=== PATIENT | male | born 1935 | race Caucasian/White ===

== ENCOUNTER 2018-09-01 19:09 | Inpatient (IN) ==
[2018-09-01 20:24] LABS: AGAP 15; ALB/GLOB RATIO 1.1; ALBUMIN 4.1 g/dL (3.5-5.0); ALKALINE PHOSPHATASE 107 U/L (32-122); BUN 14 mg/dL (8-22); CALCIUM 10.1 mg/dL (8.8-10.2); CHLORIDE 90 mmol/L (98-107); COSMO 262; CREATININE 1.1 mg/dL (0.7-1.2); ESTIMATED GFR > 60; GLUCOSE 145 mg/dL (70-104); GOT 15 U/L (10-34); GPT 6 U/L (10-44); POTASSIUM 4.3 mmol/L (3.5-5.1); SODIUM 129 mmol/L (136-145); TCO2 24 mmol/L (25-35); TOTAL BILIRUBIN 0.63 mg/dL (0.20-1.00)
[2018-09-01] MEDS ORDERED: DILAUDID IV ONE (20:32)
[2018-09-01] MEDS ORDERED: ATIVAN IV ONE (20:33)
[2018-09-01 20:41] LABS: BASO# 0.02 X1000 (0.0-0.2); BASO% 0.1 % (0.0-0.8); EOS# 0.09 X1000 (0.0-0.7); EOS% 0.7 % (0.0-10.0); HEMATOCRIT 42.5 % (42.0-52.0); HEMOGLOBIN 13.8 g/dL (14.0-18.0); IMM GRAN# 0.02 X1000 (0.0-0.04); IMM GRAN% 0.1 % (0.0-0.5); LYMPH# 0.78 X1000 (1.2-3.4); LYMPH% 5.8 % (20.5-51.1); MCH 27.2 PG (27-31); MCHC 32.5 g/dL (33-37); MCV 83.7 FL (81-99); MONO# 1.03 X1000 (0.11-0.59); MONO% 7.6 % (1.7-9.3); MPV 10.1 FL (7.4-10.4); NEUT# 11.62 X1000 (1.4-6.5); NEUT% 85.7 % (42.2-75.2); PLT 323 X1000 (130-400); RBC 5.08 XMIL (4.7-6.1); RDW 14.5 % (11.5-14.5); WBC 13.56 X1000 (4.8-10.8)
--- NOTE | 2018-09-01 21:16 | Diag Imaging Result Doc PS360 ---
EXAM: FLAT/UPRIGHT ABD/1 VIEW CHEST 09/01/2018 HISTORY: BOWEL OBSTRUCTION TECHNIQUE: AP portable upright chest and flat and upright abdomen at 2054 COMMENT: There is a fairly large amount of stool present in the colon as well as dilatation of the hepatic flexure and ascending colon with gas. The appearance is similar to 03/10/2017. There is an NG tube which is doubled up in the lower esophagus. There is subsegmental atelectasis in both lung bases as well as in the right upper lobe. The latter was not present at the time the previous study. IMPRESSION: 1. Constipation with apparent colonic ileus. 2. NG tube in the esophagus. 3. Subsegmental atelectasis plus minus pneumonia right upper lobe. Electronically signed by Minor Pena 09/01/2018 9:13 PM
--- NOTE | 2018-09-01 21:35 | Diag Imaging Result Doc PS360 ---
EXAM: CHEST/ABD TUBE PLACEMENT 09/01/2018 HISTORY: tube placed TECHNIQUE: Semierect portable at 2123 COMMENT: The distal end of the NG tube is not clearly visible however there does still appear to be a hairpin loop in the distal esophagus. IMPRESSION: NG tube in the esophagus. Electronically signed by Minor Pena 09/01/2018 9:32 PM
--- NOTE | 2018-09-01 22:00 | Diag Imaging Result Doc PS360 ---
EXAM: CT ABD/PELVIS W/IV CONT ONLY 09/01/2018 HISTORY: abdominal pain, distention, possible obstruction TECHNIQUE: This exam was performed using automated exposure control, adjustment of mA or kV according to patient size, and/or use of iterative reconstruction technique. COMMENT: The current study is compared to 07/31/2016. There are some fibrotic opacities in the lung bases bilaterally. There is compressive atelectasis or pneumonia in the right lower lobe which was not present at the time the previous study. There is a pleural effusion on the right. The stomach is distended. There is an NG tube which is coiled in the lower esophagus. There has been cholecystectomy. There is atherosclerotic calcification in the distal esophagus and iliac arteries. There is calcific and noncalcific atherosclerotic plaque at the ostium of the celiac artery which appears to be stenotic. There is also heavy calcification of the ostium of the superior mesenteric and both renal arteries. The adrenal glands and pancreas are within normal limits. There is fluid throughout most of the small bowel. There is stool in the colon the colon is not distended and the distal small bowel is not distended. The transition is located at the level of image 50 of the arterial phase on the right side just anterior to the lower portion of the liver. There is some twisting involvement which may indicate volvulus. The portion of the small bowel distal to this point is not distended. Pelvis: There are diverticula in the sigmoid colon without evidence of active diverticulitis. The urinary bladder is not distended. There is internal fixation of the right femur. There are degenerative disc changes with spinal stenosis at the L4-5 level. There is apparent herniated nucleus pulposis in the midline at L5-S1. IMPRESSION: 1. Right pleural effusion and atelectasis versus pneumonia right lower lobe. 2. Small bowel obstruction. 3. NG tube in the esophagus. Electronically signed by Minor Pena 09/01/2018 9:58 PM
[2018-09-01 22:53] LABS: INR 2.09
[2018-09-01 22:54] LABS: PTT 46.9 Seconds (22.3-41.8)
[2018-09-01 22:57] LABS: MAGNESIUM 1.9 mg/dL (1.5-2.7)
[2018-09-02] MEDS: ZOSYN 3.375 GM in NS 50 ML IV SCH ×2 (00:32→05:24)
[2018-09-02] MEDS: LOVENOX SUBQ SCH ×3 (00:33→23:20)
[2018-09-02] MEDS ORDERED: OFIRMEV 1000 MG/ISOTONIC SOLN 1,000 MG/100 ML BOTTLE IV PRN (01:22)
[2018-09-02] MEDS ORDERED: PROTONIX IV SCH (01:30)
[2018-09-02] MEDS ORDERED: DUONEB (A & A) INH PRN (01:56)
[2018-09-02] MEDS: NS 1,000 ML IV SCH ×2 (02:25→13:21)
--- NOTE | 2018-09-02 02:38 | GENERAL SURGERY CONSULTATION ---
DATE: 09/01/2018 HISTORY OF PRESENT ILLNESS: This is an 83-year-old gentleman who has had progressive abdominal distention and nausea for the last 24-36 hours. He was having colicky pain and vomiting at home. His brought him in. He had a recent bowel obstruction that was treated nonoperatively and resolved. He has had an open cholecystectomy, coronary artery bypass grafting, and a mitral valve replacement. He has had a colonoscopies, he has apparently been normal, I am unsure of the timing. Most of the history is per his here. A CT scan showed a bowel obstruction with colonic decompression. No free air or free fluid. PAST MEDICAL HISTORY: Dementia, history of mitral valve replacement, hypertension, coronary disease. PAST SURGICAL HISTORY: He has had open cholecystectomy and coronary artery bypass grafting with mitral valve replacement. SOCIAL HISTORY: No current tobacco or alcohol. He is with his here. FAMILY HISTORY: Reviewed. REVIEW OF SYSTEMS: Ten point negative. PHYSICAL EXAMINATION: Vital Signs: He is afebrile. There is no tachycardia. Blood pressures have been 119/64, oxygen saturations has been 90s. He is on nasal cannula. General: He is an elderly appearing somewhat cachectic gentleman. HEENT: No scleral icterus. Neck: No cervical mass. Cardiovascular: Normal rate. He has median sternotomy incision. Pulmonary: No increased work of breathing. Abdomen: Distended and tympanic. There is a reverse right subcostal incision. He is soft with no peritonitis. Integument: Warm and dry. Psychiatric: Appropriate affect. Neurologic: No gross deficits. Lymphatic: No cervical adenopathy. Peripheral Vascular: No lower extremity edema. LABORATORY DATA: White count is 13, hematocrit is 42, platelets 323,000. Creatinine is 1.1. Sodium is low at 129, glucose 145. Bilirubin is normal. Albumin is 4.1. I have reviewed a CT scan, but formal report is pending. ASSESSMENT AND PLAN: The patient is an 83-year-old gentleman with a bowel obstruction which is recurrent related to a previous open cholecystectomy. Initially there was difficulty placing a nasogastric tube, but I was able to get an 18-Urdu down with a large amount of bilious gastric contents greater than a liter. We will continue nasogastric tube decompression and serial abdominal examinations. Hopefully we can avoid an operation on this elderly gentleman. He has resolved these in the past, and we will continue following closely. He is being admitted to the hospitalist. I would recommend correction of electrolytes, hydration, NPO. cc: Genesis Pavon MD
[2018-09-02 04:48] LABS: BASO# 0.02 X1000 (0.0-0.2); BASO% 0.2 % (0.0-0.8); EOS# 0.03 X1000 (0.0-0.7); EOS% 0.2 % (0.0-10.0); HEMATOCRIT 41.9 % (42.0-52.0); HEMOGLOBIN 13.5 g/dL (14.0-18.0); IMM GRAN# 0.02 X1000 (0.0-0.04); IMM GRAN% 0.2 % (0.0-0.5); LYMPH# 0.53 X1000 (1.2-3.4); LYMPH% 4.4 % (20.5-51.1); MCH 27.1 PG (27-31); MCHC 32.2 g/dL (33-37); MCV 84.1 FL (81-99); MONO# 0.49 X1000 (0.11-0.59); MONO% 4.1 % (1.7-9.3); MPV 10.9 FL (7.4-10.4); NEUT# 10.97 X1000 (1.4-6.5); NEUT% 90.9 % (42.2-75.2); PLT 325 X1000 (130-400); RBC 4.98 XMIL (4.7-6.1); RDW 14.5 % (11.5-14.5); WBC 12.06 X1000 (4.8-10.8)
[2018-09-02 04:59] LABS: ESTIMATED GFR > 60
[2018-09-02 05:02] LABS: AGAP 12; BUN 16 mg/dL (8-22); CALCIUM 9.5 mg/dL (8.8-10.2); CHLORIDE 88 mmol/L (98-107); COSMO 257; CREATININE 1.1 mg/dL (0.7-1.2); GLUCOSE 114 mg/dL (70-104); POTASSIUM 4.5 mmol/L (3.5-5.1); SODIUM 127 mmol/L (136-145); TCO2 27 mmol/L (25-35)
[2018-09-02 05:08] LABS: LYMPHS 12 % (21-51); MONO 8 % (1-9); SEGS 80 % (42-75)
--- NOTE | 2018-09-02 05:27 | HISTORY AND PHYSICAL ---
ADDENDUM: Brought in today complaining of three-day history of constipation, one-day history of abdominal distention and diffuse abdominal pain. He admits to having nausea but no vomiting. He denies any fever or chills. The patient was given IV Atropine on his way to the hospital because he became profoundly nauseous and became profoundly bradycardic. He had NG tube placed and he feels a little better but 500 mL of greenish-yellowish content is in the canister at this point in time. His white count is 13,000, hematocrit and hemoglobin 13 and 42, platelets 323, 85% neutrophils, sodium is 129, BUN is 14, creatinine 1.1. A CT scan was done and it showed right pleural effusion, atelectasis versus pneumonia in the right lower lobe. Small bowel obstruction was also noted. REVIEW OF SYSTEMS: The patient also denies any coughing or shortness of breath. PHYSICAL EXAMINATION: VITAL SIGNS: Blood pressure 119/64, heart rate 52, respirations 31, temperature is 97.7. GENERAL: A frail, elderly, man who is not in acute distress. NG tube in left nares. EYES: Eyes: PERRL. EOMI. SKIN: He is mildly pale. He has diffuse skin turgor. CHEST: Decreased chest air entry in both lung dan. CARDIOVASCULAR: The patient has a 3/6 ejection murmur with associated click. ABDOMEN: Slightly distended with mild epigastric tenderness. No rebound or guarding. Bowel sounds are hypoactive. No mass or megaly appreciated. EXTREMITIES: Decreased pulse volume distally in all extremities. ASSESSMENT: 1. Small bowel obstruction. Continue NG tube decompression and symptomatic control with antiemetics and pain medication. 2. Possible right lower lobe pneumonia. Could represent unintentional aspiration pneumonia. 3. Hypertension. 4. Mitral valve mechanical valve. 5. Hyperlipidemia. 6. Probable coronary artery disease. PLAN: Additional plan would include empiric coverage with Zosyn for possible aspiration pneumonia and for possible intraabdominal infection. Will start patient on Lovenox in place of Coumadin for mechanical valve prophylaxis and IV metoprolol if needed and p.r.n. hydralazine if systolic blood pressure greater than 160. IV metoprolol 2.5 mg if systolic blood pressure greater than 130. Dr. Pavon was consulted, seen patient and he is on board and will follow with us. cc: Denice Anderson MD MTDD
[2018-09-02] MEDS: MAXIPIME 1 GM in NS 50 ML IV SCH ×2 (09:19→21:12)
[2018-09-02] MEDS: ZYVOX 600 MG/D5W 600 MG/300 ML IVPB IV SCH ×2 (09:19→21:12)
--- NOTE | 2018-09-02 09:56 | Diag Imaging Result Doc PS360 ---
EXAM: CHEST/ABD TUBE PLACEMENT INDICATION: NG tube placement TECHNIQUE: One view COMPARISON: 09/01/2018 FINDINGS: The NG tube has been repositioned and now the tip projects well below the diaphragm and is assumed to be in the lumen of the stomach in expected position. Limited views of the lung bases are essentially stable. IMPRESSION: Repositioning of the NG tube, which is now in the expected position. Electronically signed by Wili Gauthier 09/02/2018 9:54 AM
--- NOTE | 2018-09-02 10:23 | HISTORY AND PHYSICAL ---
PRIMARY CARE PROVIDER: Dr. Quentin Smith BOOTH CASHIER: Dr. Garcia at [facility]. DATE AND TIME OF HISTORY AND PHYSICAL: 09/01/2018 at 2300 hours. CHIEF COMPLAINT: Abdominal pain with nausea and vomiting. HISTORY OF PRESENT ILLNESS: Mr. Abbasi is an 83-year-old male with a past medical history most notable for hypertension, hyperlipidemia, and history of a mechanical mitral valve replacement on chronic anticoagulation with Coumadin. The patient has had a history of a small bowel obstruction in the past with the most recently being in July of 2016. The patient and his state that he began having abdominal pain in the mid afternoon on 09/01/2018. The patient reported that this was a tight type pain that was just superior to his umbilicus. He reports nausea that started later on that afternoon and he did have 1 episode of vomiting at home and reportedly had 1 or 2 episodes of vomiting since arriving to the E.R. His states that yesterday he was just not as active as he normally is. They denied him having any fever, body aches, or chills. The patient denies any headache, dizziness, shortness of breath, or cough. He denied knowingly getting choked or having a coughing spell during one of his vomiting episodes. The patient reports that his last bowel movement was yesterday but this was not as good of a bowel movement as he normally has. He denied having any problems with constipation prior to this. He denies any hematemesis, hematochezia, or melena. He denies any dysuria or urinary frequency. He also denies any pain, numbness, tingling, or swelling in the extremities. The patient's reports that just prior to the ambulance arriving that he was experiencing a lot of abdominal pain and that this did continue in the ambulance on the way to the hospital. EMS stated that en route the patient was having episodes of bradycardia with his heart rate dipping as low as into the 40s. They reported that he did become symptomatic with this and was having diaphoresis. Secondary to this they did give the patient 0.5 mg of atropine IV and his heart rate has improved and is maintaining in the high 50s and 60s at this time. EKG performed in the E.R. did show a sinus rhythm with a first degree AV block though this was present on previous EKGs as far back as 2015 and did not appear to have any acute significant changes from his prior EKG as well. He is not complaining of any chest pain, dizziness, lightheadedness, or shortness of breath at this time. This may have been a vagal response due to the patient's abdominal pain that he was having at the time. The patient does appear to have quite a bit of abdominal distention and it was reported to me by the patient's nurse that this was much worse prior to his NG tube being placed. A CT of the abdomen and pelvis did show that the patient has a small bowel obstruction. It also noted that there was a right pleural effusion and atelectasis versus pneumonia in the right lower lobe. Also, on the patient's flat and upright with 1 view chest they did note subsegmental atelectasis plus or minus pneumonia in the right upper lobe. They did have difficulty getting the patient's NG tube placed. First tube placement x-ray as well as the patient's CT did show the NG tube in the esophagus though the surgeon, Dr. Pavon, did come in and place the NG tube and since this has been placed they have been getting positive return of greenish colored emesis and the patient's abdominal distention and his pain have improved. We are awaiting chest/abdomen x-ray for tube placement confirmation at this time. He did have some mild leukocytosis with a white blood cell count of 13,560. He did have some very slight crackles in bilateral bases as well as an expiratory wheeze noted in bilateral upper lung dan. At this time the patient will be admitted for further evaluation of his small bowel obstruction and possible pneumonia. REVIEW OF SYSTEMS: A 14 point review of systems was conducted with the patient and all were negative except for pertinent positives mentioned above in the HPI. PAST MEDICAL HISTORY: 1. Hypertension. 2. Hyperlipidemia. 3. History of seizures back in the 1960s for which the patient states that he had a total of 3 seizures and has not had any since that time though the etiology of these seizures is unclear. 4. History of a mechanical mitral valve replacement on chronic anticoagulation with Coumadin. SURGICAL HISTORY: 1. Rip hip repair. 2. Mechanical mitral valve replacement which was performed 18.5 years ago. 3. Bilateral knee surgery. 4. Neck surgery. 5. Cholecystectomy. 6. Bilateral carpal tunnel repair. SOCIAL HISTORY: The patient does live with his . She states that he can ambulate without assistance but does occasionally use the assistance of a cane and walker. He is a former smoker. He quit smoking in the 1970s. There is no known illicit drug use though she does state that he drinks 1 to 2 beers daily. Though according to his , the patient has gone periods of time without drinking and has not ever had reported withdrawal symptoms. FAMILY HISTORY: His mother had a history of osteoarthritis. His father had a history of lung cancer. He does have a paternal grandfather that had a history of coronary artery disease. ALLERGIES: The patient has allergies to morphine. HOME MEDICATIONS: 1. Norvasc 10 mg p.o. daily. 2. Benazepril 20 mg p.o. every morning. 3. Gabapentin 300 mg p.o. b.i.d. 4. Isosorbide mononitrate 10 mg p.o. daily. 5. Asacol HD 800 mg p.o. b.i.d. 6. Metoprolol extended release 25 mg p.o. daily. 7. Ditropan 5 mg p.o. b.i.d. 8. Sertraline 100 mg p.o. every morning. 9. Simvastatin 20 mg p.o. nightly at bedtime. 10.Coumadin 2.5 mg p.o. nightly at bedtime. 11.Ambien 10 mg p.o. nightly at bedtime p.r.n. for sleep. DIAGNOSTIC DATA: White blood cell count is 13,560, hemoglobin 13.8, hematocrit 42.5, and platelet count 323. PT is 25, INR 2.09, and PTT 46.9. Sodium is 129, potassium 4.3, chloride 90, serum bicarb 24, BUN 14, creatinine 1.1 with a GFR of greater than 60, glucose 145, calcium 10.1, and magnesium 1.9. Liver function tests are within normal limits. CK is 62. Troponin is less than 0.01. EKG showed normal sinus rhythm with a first degree AV block at a rate of 60 with a QTc of 478. Flat and upright abdomen with 1 view chest showed constipation with apparent colonic ileus. There was subsegmental atelectasis plus or minus pneumonia in the right upper lobe. It was also noted that the NG tube on this film was in the esophagus. CT of the abdomen and pelvis with IV contrast only showed that the patient had a right pleural effusion and atelectasis versus pneumonia in the right lower lobe. There was also a small bowel obstruction. The NG tube was still noted to be in the esophagus on this study as well but since that time Dr. Pavon has placed the patient's NG tube and he is having positive return of greenish colored emesis and his abdominal distention and pain have improved but we are awaiting chest/abdomen x-ray for NG tube placement confirmation. PHYSICAL EXAMINATION: VITAL SIGNS: Temperature is 97.7, heart rate 56, respirations 13, and blood pressure 131/71. Oxygen saturation is 95% on 3 to 4 L via nasal cannula. GENERAL: Mr. Abbasi is a pleasant 83-year-old male. He was resting in the E.R. stretcher. He was in no acute distress. He was awake, alert, and oriented to person, place, time, and situation. HEENT: The head is atraumatic, normocephalic. Pupils are equal, round, and reactive to light. They were 2 mm bilaterally and brisk. Oral mucosa is slightly dry. Oropharynx is clear. NECK: Supple. Trachea is midline. CARDIOVASCULAR: The patient does have S1 and S2 though he does have a fairly loud systolic murmur noted. He does have a regular rate and rhythm. PULMONARY: The patient has symmetrical chest expansion bilaterally. Lungs sounds in bilateral upper dan did have an expiratory wheeze noted. He did have slight crackles noted in the bilateral bases. ABDOMEN: Slightly firm. It is distended. He was mildly tender upon palpation just superior to his umbilicus though there is no rebound tenderness noted at this time. Bowel sounds were present in all four quadrants and they were hypoactive. EXTREMITIES: No cyanosis, clubbing, or edema noted. Pulse, motor, and sensory were intact in all extremities. Radial pulses and pedal pulses were 2+ bilaterally. INTEGUMENTARY: The patient's skin is pink, warm, and dry. NEUROLOGICAL: The patient is alert and oriented to person, place, time, and situation. There were no focal neurological deficits noted at this time. ASSESSMENT AND PLAN: 1. Small bowel obstruction. For this we have placed the patient n.p.o. He has had an NG tube placed by Dr. Pavon in the E.R. Since this has been placed the patient has had a positive return of greenish colored gastric contents. His abdominal distention has improved and the patient also reports that his pain is much better. Dr. Pavon as previously mentioned has been consulted and has already evaluated the patient. We will await their evaluation and further recommendations for management. The patient will be placed on gentle fluid hydration with normal saline at 85 mL/hr. We will continue to follow. 2. Nausea and vomiting. This is secondary to #1. We will continue with treatment as mentioned above and p.r.n. antiemetics. 3. Possible pneumonia. The patient was noted on chest/abdomen x-ray as well as CT of the abdomen and pelvis that he has possible atelectasis versus pneumonia in the right upper and lower lobe. Given the patient's reported nausea and vomiting this may likely be secondary to aspiration pneumonia. We have placed him with antibiotic coverage of Zosyn. Blood cultures have been obtained. A sputum culture order has also been placed. We will continue with incentive spirometry, aspiration precautions, encouragement to cough, turn, and deep breath, and p.r.n. DuoNeb treatments. We will continue to follow. 4. Bradycardia. It was reported that in the ambulance on the way to the E.R. the patient did have an episode of what was reported to be symptomatic bradycardia. The patient' s heart rate did drop into the 40s and he did have an associated symptom of diaphoresis with this. The patient was reported to be in quite a bit of abdominal pain. He may have had a vagal response. They did end up giving him 0.5 mg of atropine IV and since that time the patient' s heart rate has maintained in the high 50s and 60s. He has not had any further episodes of symptomatic bradycardia with his heart rate getting into the 40s like his episode he had prior to arrival. His EKG in the E.R. did show a sinus rhythm with a first degree AV block at a rate of 60. His first degree AV block has been present on previous EKGs as far back as 2016. There does not appear to be any other EKG changes when compared to previous EKGs. He has denied any chest pain. Cardiac enzymes were negative. At this time we will continue to monitor this. The patient has been placed in [facility] with telemetry at least overnight to be monitored closely for any other episodes of bradycardia. We will continue to follow. 5. History of mechanical mitral valve replacement. The patient normally does take Coumadin for anticoagulation but given that he has a small bowel obstruction, he is n.p.o. , and does have an NG tube in place. At this time we have placed him with anticoagulation with Lovenox 1 mg/kg every 12 hours. We will continue to follow. 6. Hypertension. At this time the patient's blood pressure is within normal limits. We will continue to monitor this closely and implement antihypertensives if necessary though at this time we are holding his metoprolol as well given his bradycardia. We will continue to follow. 7. Deep vein thrombosis prophylaxis is provided with the above mentioned Lovenox. The patient has been placed in [facility] on telemetry. He will have vital signs every 4 hours with strict intake and output. We will repeat a CBC and BMP in the morning. Further orders and recommendations pending hospital course, diagnostic studies, and physician evaluation. Dictated by MO Cardona for Denice Anderson MD cc: Denice Anderson MD Pls refer to my addendum dictated. MTDD
[2018-09-02] MEDS: DUONEB (A & A) INH SCH ×4 (11:01→23:25)
--- NOTE | 2018-09-02 14:04 | GENERAL SURGERY PROGRESS NOTE ---
DATE: 09/02/2018 SUBJECTIVE: He feels better. NG tube output remains high. No fevers. No tachycardia. OBJECTIVE: Blood pressure 104/82. General: He is more alert. Cardiovascular: Normal rate. Pulmonary: No increased work of breathing. NG tube is in place with a large amount of bilious output. Abdomen: Soft, nontender. Less distended. LABS: White count 12, hematocrit 41, potassium 4.5, sodium is 127, glucose 114 to 163. ASSESSMENT AND PLANS: An 83-year-old, gentleman with bowel obstruction. He has medical issues. Will continue nasogastric tube decompression. He has had these before and is resolving nonoperatively. He would be high risk for abdominal operation given his multiple medical issues including cardiac and dementia. His sodium continues to downtrend. Will need to watch this closely. He is on the medicine service. Will follow along, but no plans for surgical intervention. cc: Genesis Pavon MD
[2018-09-02] MEDS ORDERED: SODIUM CHLORIDE 0.9% INJ SCH (15:15)
--- NOTE | 2018-09-02 19:18 | PROVIDER DOCUMENTATION ---
This chart was entered by Stephanie Menendez Scribe, acting as scribe for Laurie Laughlin MD. HPI-Abdominal Pain/GI Problem - General Chief Complaint: Abdominal Pain Stated Complaint: ABD PAIN WITH N/V Time Seen by Provider: 09/01/18 19:54 Source: patient Allergies/Adverse Reactions: Patient Allergies Allergy/AdvReac Type Severity Reaction Status Date / Time morphine AdvReac Intermediate causes Verified 09/01/18 21:37 ileus Home Medications: Home Medication List Medication Instructions Recorded Confirmed Last Taken Type Sertraline HCl 100 mg PO QAM 12/09/15 09/01/18 01/29/17 08:00 History Simvastatin 20 mg PO QHS 12/09/15 09/01/18 01/28/17 History Zolpidem [Ambien] 10 mg PO QHS PRN #20 tablet 12/29/15 09/01/18 01/28/17 Rx Amlodipine [Norvasc] 10 mg PO DAILY 03/11/16 09/01/18 01/29/17 08:00 History Mesalamine D.r. [Asacol Hd] 800 mg PO BID 01/29/17 09/01/18 01/29/17 08:00 History Warfarin [Coumadin] 2.5 mg PO QHS 01/29/17 09/02/18 01/28/17 History Benazepril HCl 20 mg PO QAM 09/01/18 09/01/18 Unknown History Gabapentin 300 mg PO BID 09/01/18 09/01/18 Unknown History Isosorbide Mononitrate 10 mg PO DAILY 09/01/18 09/01/18 Unknown History Oxybutynin [Ditropan] 5 mg PO BID 09/01/18 09/01/18 Unknown History - History of Present Illness-ABD Nature of Presenting Problems: Patient is a 83 year old male who presents to the ED via EMS with generalized upper abdominal pain. Patient states nausea and denies vomiting. Patient states symptoms started this afternoon. Patient's states history of small bowel obstruction. Abdominal Pain Onset Location: reports: other (generalized upper) Pain Radiation: reports: no radiation Quality of Pain: reports: aching Severity in ED: reports: mild Onset/Duration: reports: this afternoon Timing: reports: still present, getting worse Activities at Onset: reports: light activity Modifying Factors: improves with: nothing Associated Symptoms: reports: nausea Last BM: 2 days ago Dark Stools Present?: reports: none noticed Rectal Bleeding: reports: none Rectal Pain: reports: none Emesis Description: reports: none Bruising or Bleeding Gums?: No Similar Symptoms Previously?: Yes Recently seen or treated by another doctor?: No Review of Systems - Adult - REVIEW OF SYSTEMS - ADULT Constitutional: reports: no symptoms reported Eyes: reports: no symptoms reported Ears, Nose, Mouth & Throat: reports: no symptoms reported Cardiovascular: reports: no symptoms reported Respiratory: reports: no symptoms reported Gastrointestinal: reports: abdominal pain (generalized upper), nausea. denies: diarrhea, vomiting Genitourinary: reports: no symptoms reported Musculoskeletal: reports: no symptoms reported Integumentary: reports: no symptoms reported Neurological: reports: no symptoms reported Psychiatric: reports: no symptoms reported Endocrine: reports: no symptoms reported Hematologic/Lymphatic: reports: no symptoms reported Allergic/Immunologic: reports: no symptoms reported All Other Systems: Reviewed and Negative Past History - Adult - PAST MEDICAL HISTORY-ADULT Review of Records: reports: Nursing Assessment Review, Medications Reviewed, Social history reviewed & non-contributory. Major Childhood Illnesses: reports: denies history Cardiovascular: reports: HTN Respiratory: reports: denies history Gastrointestinal: reports: denies history Obstetrical/Gynecological: reports: denies history Genitourinary: reports: denies history Musculoskeletal: reports: denies history Neurological: reports: Seizures/Epilepsy () Psychiatric: reports: denies history Endocrine/Immune: reports: denies history Other Conditions: reports: denies history - PRIOR SURGERIES/PROCEDURES Surgical/Procedure History: reports: reviewed, not pertinent, other (mechanical mitral valve) - PRIOR HOSPITALIZATIONS Prior Hospitalizations: reports: for similar symptoms - IMMUNIZATION STATUS Childhood Immunizations: See Nurse Assessment Flu Vaccine: See Nurse Assessment - FAMILY HISTORY Family History: reviewed, not pertinent - SOCIAL HISTORY Smoking: cigarettes (former) Substance Use: alcohol Alcohol Use Frequency: every day Number of drinks per typical drinking period:: 2 drinks Living Situation: family Physical Exam-General - PHYSICAL EXAM-ADULT Initial Vital Signs Reviewed: Yes - CONSTITUTIONAL General Appearance: alert, mild distress - RESPIRATORY Respiratory: chest non-tender, lungs clear, normal breath sounds - CARDIOVASCULAR Cardiovascular: normal peripheral pulses, regular rate, rhythm - GASTROINTESTINAL (ABDOMEN) Abdominal Exam: distended, tenderness (epigastric, RUQ and LUQ) - MUSCULOSKELETAL Extremity: normal inspection - SKIN Integumentary: normal color, normal turgor, warm/dry - NEUROLOGIC Neurologic: grossly normal - PSYCHIATRIC Psych/Mental Status: normal mood/affect, oriented x 3 Progress - PLAN OF CARE/RESULTS Progress/Plan/Lab Results: Vital Signs - 8 hr 09/01/18 19:23 Temperature 97.7 F Pulse Rate 55 L Respiratory Rate 20 Blood Pressure 119/64 O2 Sat by Pulse Oximetry 95 Orders Category Date Time Status NG/OG/Feeding Tube Insertion ORDERED Care 09/01/18 20:06 Active FLAT/UPRIGHT ABD/1 VIEW CHEST [RAD] Stat Exams 09/01/18 20:05 Ordered CBC WITH ELECTRONIC DIFF [HEME] Stat Lab 09/01/18 20:05 Uncollected COMPREHENSIVE METABOLIC PANEL [CHEM] Stat Lab 09/01/18 20:05 Ordered EKG [EKG] Stat Ther 09/01/18 19:36 Ordered Result Diagrams: 09/02/18 00:21 09/02/18 00:21 - EKG 1 Time of EKG reading by physician:: 19:37 EKG Read and Signed by:: Laurie Laughlin EKG Interpretation (*Must complete 3 of following elements*): Abnormal Rate: 60 Rhythm: sinus rhythm with 1st degree AV block Comments: otherwise normal ECG - XRAY 1 XRAY Study: Chest, Abdomen Impression: See EMR Report (EXAM: FLAT/UPRIGHT ABD/1 VIEW CHEST 09/01/2018 HISTORY: BOWEL OBSTRUCTION TECHNIQUE: AP portable upright chest and flat and upright abdomen at 5 COMMENT: There is a fairly large amount of stool present in the colon as well as dilatation of the hepatic flexure and ascending colon with gas. The appearance is similar to 03/10/2017. There is an NG tube which is doubled up in the lower esophagus. There is subsegmental atelectasis in both lung bases as well as in the right upper lobe. The latter was not present at the time the previous study. IMPRESSION: 1. Constipation with apparent colonic ileus. 2. NG tube in the esophagus. 3. Subsegmental atelectasis plus minus pneumonia right upper lobe. Electronically signed by Minor Pena 09/01/2018 9:13 PM 09/01/182112 Interpreting Physician: Minor Pena MD Dictated Date/Time: 09/01/182109 cc: Laurie Laughlin MD; Pradeep Lundy) - CT/MRI 1 CT Study: Abdomen, Pelvis Impression: See EMR Report (EXAM: CT ABD/PELVIS W/IV CONT ONLY 09/01/2018 HISTORY: abdominal pain, distention, possible obstruction TECHNIQUE: This exam was performed using automated exposure control, adjustment of mA or kV according to patient size, and/or use of iterative reconstruction technique. COMMENT: The current study is compared to 07/31/2016. There are some fibrotic opacities in the lung bases bilaterally. There is compressive atelectasis or pneumonia in the right lower lobe which was not present at the time the previous study. There is a pleural effusion on the right. The stomach is distended. There is an NG tube which is coiled in the lower esophagus. There has been cholecystectomy. There is atherosclerotic calcification in the distal esophagus and iliac arteries. There is calcific and noncalcific atherosclerotic plaque at the ostium of the celiac artery which appears to be stenotic. There is also heavy calcification of the ostium of the superior mesenteric and both renal arteries. The adrenal glands and pancreas are within normal limits. There is fluid throughout most of the small bowel. There is stool in the colon the colon is not distended and the distal small bowel is not distended. The transition is located at the level of image 50 of the arterial phase on the right side just anterior to the lower portion of the liver. There is some twisting involvement which may indicate volvulus. The portion of the small bowel distal to this point is not distended. Pelvis: There are diverticula in the sigmoid colon without evidence of active diverticulitis. The urinary bladder is not distended. There is internal fixation of the right femur. There are degenerative disc changes with spinal stenosis at the L4-5 level. There is apparent herniated nucleus pulposis in the midline at L5-S1. IMPRESSION: 1. Right pleural effusion and atelectasis versus pneumonia right lower lobe. 2. Small bowel obstruction. 3. NG tube in the esophagus. Electronically signed by Minor Pena 09/01/2018 9:58 PM 09/01/182157 Interpreting Physician: Minor Pena MD Dictated Date/Time: 09/01/182150 cc: Laurie Laughlin MD; Pradeep Lundy) - CONSULTS/PCP/HOSPITALIST Notification #1 *Consult/PCP/Hospitalist*: Dr. Pavon Time Discussed: 21:35 Reason/Comments: Dr. Laughlin consulted with Dr. Pavon about patient. Consult Disposition: Will see in ED #2 Consult: Dr. Anderson Time Discussed: 22:10 Reason/Comments: Dr. Laughlin consulted with Dr. Anderson about patient. Consult Disposition: Admit Departure - Departure Date of Disposition Decision: 09/01/18 Time of Disposition Decision: 22:11 DIAGNOSIS: Small bowel obstruction Disposition: ADMITTED INPATIENT 09 Certified Medical Emergency: Emergent Condition: Fair - Critical Care Note This patient required my direct & personal management of CC.: No Attestation - Physician/ SINAN Attestation The physician spent face to face time with patient:: Yes Advanced Practice Provider documentation review:: Supervising physician onsite and consulted in the evaluation and care of this patient. The physician did have a face to face encounter with the patient. This chart was documented by the indicated scribe, (Stephanie Menendez Scribe) and accurately reflects the services I performed and decisions made by Truman see Mai Huu, MD, as attested by the provider's signature.
[2018-09-02] MEDS: PROTONIX IV SCH (21:12)
[2018-09-02] MEDS: DILAUDID IV PRN (23:20)
[2018-09-02] MEDS: ZOFRAN IV PRN (23:21)
[2018-09-03] MEDS: DUONEB (A & A) INH SCH ×6 (03:32→23:05)
[2018-09-03 05:34] LABS: BASO# 0.01 X1000 (0.0-0.2); BASO% 0.1 % (0.0-0.8); EOS% 1.3 % (0.0-10.0); HEMATOCRIT 38.5 % (42.0-52.0); HEMOGLOBIN 12.6 g/dL (14.0-18.0); IMM GRAN# 0.02 X1000 (0.0-0.04); IMM GRAN% 0.3 % (0.0-0.5); LYMPH# 0.89 X1000 (1.2-3.4); LYMPH% 11.2 % (20.5-51.1); MCH 27.6 PG (27-31); MCHC 32.7 g/dL (33-37); MCV 84.4 FL (81-99); MONO# 0.75 X1000 (0.11-0.59); MONO% 9.5 % (1.7-9.3); MPV 9.7 FL (7.4-10.4); NEUT# 6.16 X1000 (1.4-6.5); NEUT% 77.6 % (42.2-75.2); PLT 274 X1000 (130-400); RBC 4.56 XMIL (4.7-6.1); RDW 14.5 % (11.5-14.5); WBC 7.93 X1000 (4.8-10.8)
[2018-09-03 06:04] LABS: AGAP 12; ALBUMIN 3.6 g/dL (3.5-5.0); ALKALINE PHOSPHATASE 89 U/L (32-122); BUN 19 mg/dL (8-22); CALCIUM 7.6 mg/dL (8.8-10.2); CHLORIDE 94 mmol/L (98-107); COSMO 269; CREATININE 1.1 mg/dL (0.7-1.2); ESTIMATED GFR > 60; GLUCOSE 114 mg/dL (70-104); GOT 12 U/L (10-34); GPT 5 U/L (10-44); POTASSIUM 3.5 mmol/L (3.5-5.1); SODIUM 133 mmol/L (136-145); TCO2 27 mmol/L (25-35); TOTAL BILIRUBIN 0.49 mg/dL (0.20-1.00); TOTAL PROTEIN 7.1 g/dL (6.3-8.3)
[2018-09-03 06:24] LABS: MAGNESIUM 1.9 mg/dL (1.5-2.7); PHOSPHORUS 3.8 mg/dL (2.7-4.5)
[2018-09-03] MEDS: ZYVOX 600 MG/D5W 600 MG/300 ML IVPB IV SCH ×2 (09:09→21:01)
[2018-09-03] MEDS: NS 1,000 ML IV SCH ×2 (09:10→17:44)
[2018-09-03] MEDS: MAXIPIME 1 GM in NS 50 ML IV SCH ×2 (09:10→21:00)
[2018-09-03] MEDS: PROTONIX IV SCH ×2 (09:11→19:12)
[2018-09-03] MEDS: SODIUM CHLORIDE 0.9% INJ SCH (09:11)
[2018-09-03] MEDS: LOVENOX SUBQ SCH ×2 (09:12→21:01)
--- NOTE | 2018-09-03 09:56 | Diag Imaging Result Doc PS360 ---
EXAM: FLAT/UPRIGHT ABD/1 VIEW CHEST INDICATION: obstruction/pneumonia TECHNIQUE: 3 views COMPARISON: 09/02/2018 and 09/01/2018 FINDINGS: The NG tube projects below the diaphragm and is assumed to be in the spell in the expected position. There are persistent gas distended loops of small bowel. This has probably improved marginally. There is no evidence of large volume free abdominal gas. There is retained contrast media in the urinary bladder from a recent CT. Inspiration is suboptimal. There is persistent subsegmental atelectasis at the lung bases but it has improved. There is probably a small right pleural fluid collection that appears stable. No new consolidation is identified. Cardiac silhouette is stable. IMPRESSION: 1.Suggestion of slight improvement of gaseous distention of small bowel. 2.Some improvement of bibasilar atelectasis. Electronically signed by Wili Gauthier 09/03/2018 9:53 AM
--- NOTE | 2018-09-03 14:49 | PROGRESS NOTE ---
DATE: 09/03/2018 SUBJECTIVE: The patient is resting comfortably in bed. He has no complaints at this time. OBJECTIVE: Vital Signs: Temperature 98.1 degrees, blood pressure 123/55, heart rate 75, respirations 17, O2 saturation 93% on 3 L nasal cannula. General: This is a chronically ill- appearing elderly male lying in bed in no acute distress. Heart: S1, S2 normal. There is a mechanical click on auscultation. Lungs: Equal air entry bilaterally. No wheezing. No rales. Diminished breath sounds at the bases. Abdomen: Hypoactive bowel sounds, distended. Extremities: No edema, no cyanosis, no calf tenderness. Neurologic: The patient is alert and oriented x4. LABS: White blood cell count 7.9, hemoglobin 12, hematocrit 38, platelets 274, 000, sodium 133, potassium 3.5, chloride 94, CO2 27, BUN 19, creatinine 1.1, glucose 114, calcium 7.6. Abdominal x-ray shows slight improvement of the distention of the small bowel. ASSESSMENT AND PLAN: 1. Small bowel obstruction. Continue with NG tube decompression and serial abdominal x-rays. We will continue with IV fluid. General Surgery is following. 2. Suspected aspiration pneumonia. Continue with broad-spectrum antibiotics and bronchodilator therapy. 3. Mechanical mitral valve replacement. The patient is currently on full dose Lovenox. We will continue this until the patient can be started back on Coumadin. The patient will require bridging once the Coumadin is restarted. 4. Leukocytosis. Resolved. 5. Hyponatremia. Improved. Continue with normal saline. 6. Gastrointestinal prophylaxis. Continue on IV Protonix. cc: Yakelin Mckenna MD [facility]
--- NOTE | 2018-09-03 16:41 | GENERAL SURGERY PROGRESS NOTE ---
DATE: 09/03/2018 SUBJECTIVE: He is doing well. No flatus yet, but pain is much improved. He had a KUB this morning. It showed some persistent dilation of the small bowel, but the stomach is much decompressed. PHYSICAL EXAMINATION: Abdomen: Soft, less distended. Integument: Warm and dry. NG tube is very bilious. LABORATORY DATA: I reviewed his labs. White count 7, hematocrit is 38. Creatinine is 1.1. ASSESSMENT AND PLAN: This is an 83-year-old gentleman with bowel obstruction. Continue nasogastric decompression. He is very high risk. He has had valve replacement, and he is anticoagulated. Continue to monitor him closely. I have encouraged him to be out of bed and ambulating. I do think he is improving. cc: Genesis Pavon MD
[2018-09-03 16:47] LABS: URINE SOURCE CATH
[2018-09-03 16:54] LABS: BILIRUBIN URINE NEGATIVE (NEGATIVE); BLOOD URINE SMALL (NEGATIVE); COLOR YELLOW; GLUCOSE URINE NEGATIVE (NEGATIVE); KETONE URINE NEGATIVE (NEGATIVE); LEUKOCYTES URINE MODERATE (NEGATIVE); NITRITE URINE NEGATIVE (NEGATIVE); PROTEIN URINE 30 mg/dL (NEGATIVE); SP GRAVITY URINE 1.023; TURBIDITY URINE CLEAR (CLEAR); UROBILINOGEN URINE NORMAL (NORMAL)
[2018-09-03 16:55] LABS: UR EPITHELIAL CELLS <10 /HPF (<10); URINE BACTERIA NEGATIVE /HPF
[2018-09-03] MEDS: ZOFRAN IV PRN (19:12)
[2018-09-03] MEDS: DILAUDID IV PRN (19:12)
--- NOTE | 2018-09-03 19:20 | CARDIOLOGY CONSULTATION ---
DATE: 09/03/2018 CHIEF COMPLAINT ON PRESENTATION: Abdominal pain with nausea and vomiting. HISTORY OF PRESENT ILLNESS: Mr. Abbasi is an 83-year-old male with a history of hypertension, hyperlipidemia, coronary artery disease and previous mechanical mitral valve placement. He has had issues with previous bowel obstructions and began having abdominal pain in the afternoon of the . He subsequently presented to the ER and had an abdominal and pelvis CT demonstrating a small bowel obstruction. Currently, he is on conservative management with an NG tube in place and has been made n.p.o. He reports no abdominal pain presently. He has been adherent to his Coumadin previously. Currently, he is on Lovenox. PAST MEDICAL HISTORY: 1. Significant for paroxysmal atrial fibrillation. 2. Coronary disease with history of bypass. This was done in 1999 with a DAWSON to the LAD, vein graft to the OM1. In addition, he had a [facility] 33 mm mitral valve replacement at that time. His last echo was on August 03 demonstrating an EF of 60%. Severe aortic valve stenosis with a mean gradient of 38 and a valve area of 0.7. Mechanical mitral valve had mention of normal gradients; however, these were not listed in the [facility] dictation. Most recent nuclear scan demonstrated a medium-sized mixed defect in the inferior wall with a small amount of reversibility with a probable component of subdiaphragmatic attenuation, small ischemic burden with an ejection fraction of 47%. 3. Mechanical mitral valve, as detailed above. 4. Severe aortic stenosis, as detailed above. 5. Hyperlipidemia. 6. Hypertension. SOCIAL HISTORY: He is . His is present in the room. He does not currently smoke, although quit smoking in the 70s. FAMILY HISTORY: Mother with osteoarthritis. Father has a history of lung cancer. REVIEW OF SYSTEMS: A 10-system review of systems is negative except for those mentioned in HPI. PHYSICAL EXAMINATION: Vital signs: He is afebrile. Heart rate is 75, his blood pressure is 123/55. General: He is in no acute distress. HEENT: Oropharynx is moist. Poor dentition. His eye examination is pink conjunctivae, white sclerae. Neck: Examination shows no obvious thyromegaly or thyroid tenderness. Cardiovascular: He sounds to be in a regular rate and rhythm. He has a 2/6 crescendo/decrescendo murmur best heard at the right upper sternal border consistent with his aortic stenosis. In addition, he has a mechanical S1 best heard at the apex consistent with his mechanical mitral valve. He has no lower extremity edema. Chest: Clear bilaterally. He has no increased work of breathing. Abdomen: Soft, nontender. NG tube is in place. He has minimal bowel sounds heard in the lower quadrants. Skin: Warm and dry throughout without any rashes. Neurological: He is moving all extremities well. He has no lateralizing deficits. Psychiatric: He is alert, oriented, pleasant. Normal mood and affect. PERTINENT DATA: He had an EKG performed on the at 1937 showing sinus rhythm, suggestion of an inferior scar. First degree AV block was identified. His abdominal CT scan was noted. His white count is 7.9, hematocrit 38, his platelet count is 274,000. His sodium is 133, potassium 3.5, BUN 19, creatinine is 1.1. ASSESSMENT: Mr. Abbasi is an 83-year-old gentleman with a history of coronary disease, mechanical mitral valve placement and severe aortic stenosis. He is currently under conservative management for his bowel obstruction. PLAN: At this point I do not have further recommendations. I certainly would continue with the Lovenox. When the definitive management of surgical versus nonsurgical therapy has been determined and when safe, he could return to Coumadin therapy. I would recommend a goal INR between 2.5 and 3.5. I will defer management of his INR to the primary team. Certainly, he would be a high risk patient for any sort of surgical intervention considering his history of coronary disease, mechanical mitral valve and severe aortic stenosis. He normally follows with Dr. Garcia as an outpatient. I would recommend reestablishment with him at the time of discharge for further considerations and definitive management of his aortic valve. cc: Pineda Bradford MD MTDD
[2018-09-04] MEDS: NS 1,000 ML IV SCH ×4 (02:45→18:52)
[2018-09-04] MEDS: DUONEB (A & A) INH SCH ×6 (03:15→23:45)
[2018-09-04 05:24] LABS: BASO# 0.02 X1000 (0.0-0.2); BASO% 0.4 % (0.0-0.8); EOS# 0.14 X1000 (0.0-0.7); EOS% 2.5 % (0.0-10.0); HEMATOCRIT 37.8 % (42.0-52.0); HEMOGLOBIN 11.9 g/dL (14.0-18.0); LYMPH# 0.73 X1000 (1.2-3.4); LYMPH% 13.3 % (20.5-51.1); MCH 27.4 PG (27-31); MCHC 31.5 g/dL (33-37); MCV 86.9 FL (81-99); MONO% 9.1 % (1.7-9.3); MPV 9.7 FL (7.4-10.4); NEUT# 4.11 X1000 (1.4-6.5); NEUT% 74.7 % (42.2-75.2); PLT 229 X1000 (130-400); RBC 4.35 XMIL (4.7-6.1); RDW 14.5 % (11.5-14.5)
[2018-09-04 05:40] LABS: INR 2.56; PROTIME 29.4 Seconds (11.0-16.0)
[2018-09-04 05:41] LABS: PTT 83.5 Seconds (22.3-41.8)
--- NOTE | 2018-09-04 06:11 | GENERAL SURGERY PROGRESS NOTE ---
DATE: 09/04/2018 SUBJECTIVE: Patient seems to be doing okay. He has a little bit of stomach cramping. He had a bowel movement yesterday. He is not sick to his stomach, but he cannot remember the last time he passed gas. His abdomen appears soft at this point. OBJECTIVE: Vital Signs: Patient is currently afebrile. His vital signs are stable. General: No acute distress. HEENT: Normocephalic, atraumatic. Pupils equal, round, reactive to light. Mucous membranes moist. Oropharynx benign. Neck: Supple trachea midline. Cardiovascular: Regular rate and rhythm. Lungs: Grossly clear. Abdomen: Soft. No real distention. No real tenderness some faint bowel sounds auscultated. Extremities: Moves all extremities. Neurologic: Grossly intact. Skin: No signs of jaundice. Vascular: All extremities perfused. LABORATORY: Reviewed. White blood cell count is 5, hematocrit 37, platelet count 229,000. INR is 2.56. ASSESSMENT/PLAN: An 83-year-old male with bowel obstruction. 1. Bowel obstruction. At this time he seems to be making some improvement. We will clamp his NG tube and give him a test run. If he does well, may consider removing his NG tube tomorrow. Start on diet. At this point continue current treatment. 2. Multiple medical comorbidities. At this time, we will monitor him and defer to the hospitalist. cc: Kei Art MD
[2018-09-04 06:22] LABS: AGAP 9; ALBUMIN 3.4 g/dL (3.5-5.0); ALKALINE PHOSPHATASE 71 U/L (32-122); BUN 10 mg/dL (8-22); CHLORIDE 102 mmol/L (98-107); COSMO 273; CREATININE 0.8 mg/dL (0.7-1.2); ESTIMATED GFR > 60; GLUCOSE 100 mg/dL (70-104); GOT 15 U/L (10-34); GPT 6 U/L (10-44); MAGNESIUM 2.1 mg/dL (1.5-2.7); POTASSIUM 3.6 mmol/L (3.5-5.1); SODIUM 137 mmol/L (136-145); TCO2 26 mmol/L (25-35); TOTAL BILIRUBIN 0.45 mg/dL (0.20-1.00); TOTAL PROTEIN 6.8 g/dL (6.3-8.3)
--- NOTE | 2018-09-04 07:11 | EKG Report ---
Test Performed on : 09/01/2018 7:37:00 PM Test Reason : bradycardia Blood Pressure : / mmHG Vent. Rate : 060 BPM Atrial Rate : 060 BPM P-R Int : 224 ms QRS Dur : 108 ms QT Int : 478 ms P-R-T Axes : 033 016 051 degrees QTc Int : 478 ms Sinus rhythm. with 1st degree AV block. Otherwise normal ECG When compared with ECG of 31-JUL-2016 15:12, No significant change was found Unconfirmed Result
[2018-09-04] MEDS ORDERED: SODIUM PHOSPHATE 35 MMOL in NS 250 ML IV ONE (09:33)
[2018-09-04] MEDS: ZYVOX 600 MG/D5W 600 MG/300 ML IVPB IV SCH ×2 (09:49→20:49)
[2018-09-04] MEDS: MAXIPIME 1 GM in NS 50 ML IV SCH ×2 (09:49→20:50)
[2018-09-04] MEDS: LOVENOX SUBQ SCH (09:49)
[2018-09-04] MEDS: SODIUM CHLORIDE 0.9% INJ SCH (09:49)
[2018-09-04] MEDS: PROTONIX IV SCH ×2 (09:49→20:50)
--- NOTE | 2018-09-04 10:06 | PROGRESS NOTE ---
DATE: 09/04/2018 SUBJECTIVE: Patient reports feeling fine. Reports he had 1 bowel movement yesterday. He did not have any bowel movement today. He is not feeling nauseated. He wants to continue to have ice chips or some water if possible. OBJECTIVE: Vital Signs: Temperature 97.5 degrees, heart rate 82, respiratory rate 20, blood pressure 145/74, O2 saturation 98% on 3 L nasal cannula. General: This is a chronically ill- looking 83-year-old, male, lying in bed, in no acute distress. HEENT : Head is normocephalic, atraumatic with very dry mucous membranes. Neck: No JVD noted. No carotid bruits. No lymphadenopathy. Cardiovascular: S1, S2 heard. There is a 5/6 systolic murmur in the aortic area radiating to the neck, and there is also a mechanical valve sound in the mitral area. Respiratory: Clear bilaterally to auscultation. No work of breathing or using accessory muscles. Abdomen: Soft. Nontender to palpation. A little bit distended. Bowel sounds present. No organomegaly. Extremities: No clubbing, cyanosis, or edema. Peripheral pulses present in both legs. Neurological: Patient is alert and oriented x3. Moves 4 extremities. LABORATORY DATA: White cell count 5.5, hemoglobin 11.9, hematocrit 37.8, platelets 229,000 with INR 2.5. Normal BMP except phosphorus 2.1 and calcium 8.0. ASSESSMENT AND PLAN: 1. Small bowel obstruction. The patient has been seen by Dr. Art today, and he thinks that he is doing better. The patient requests to have some water and considered that he had a bowel movement yesterday with positive bowel sounds, will give him only water today , and see how he does. Will do abdominal x-ray for tomorrow. 2. Aspiration pneumonia. Patient is on Zyvox day #2 and also cefepime day #2 as well. We will continue with the same management. We will check an x-ray tomorrow morning and see how he is doing. 3. Mechanical mitral valve replacement. Because the patient is not able to take anything by mouth, the patient is on full-dose Lovenox. We will continue with the same management, and we will need to breach into Coumadin whenever this patient is able to take medication by mouth. 4. Leukocytosis, resolved. 5. Hyponatremia. Sodium is 137, resolved. 6. Gastrointestinal prophylaxis with Protonix. 7. Disposition. At this point, we will continue following the lead from General Surgery. Whenever the NG tube is removed, then we can call physical therapy because this patient looks to be very debilitated. cc: Carrington Cyr MD MTDD
--- NOTE | 2018-09-04 14:31 | CARDIOLOGY PROGRESS NOTE ---
DATE: 09/04/2018 SUBJECTIVE: Mr. Abbasi reports he is doing well. He has no complaints today. His NG tube is out. He is tolerating oral intake. PHYSICAL EXAMINATION: Vital Signs: Patient is afebrile. Heart rate is 78. His blood pressure has been primarily in the 100s to 110s systolic. General: He is in no acute distress. Cardiovascular: He sounds to be in a regular rate and rhythm. He has a mechanical S1 as well as a 2/6 systolic ejection murmur at the right upper sternal border consistent with his known aortic stenosis. Warm and well perfused lower extremities with no edema. Chest: Clear bilaterally. He has no increased work of breathing. Abdomen: Soft, nontender, nondistended. No obvious organomegaly. PERTINENT DATA: Patient's INR today is 2.5. His hematocrit is 37. His BUN and creatinine are 10 and 0.8 respectively. ASSESSMENT: Mr. Abbasi is an 83-year-old gentleman with severe aortic stenosis and mechanical mitral valve who currently seems to be recovering from a small bowel obstruction. PLAN: I have discontinued his Lovenox. His INR is 2.5. I will re-initiate his home warfarin dosing. At this point, I will sign off on the case. I will ensure that the patient has INRs ordered on a regular basis. cc: Pineda Bradford MD
[2018-09-04] MEDS: COUMADIN PO SCH (20:50)
[2018-09-05] MEDS: DUONEB (A & A) INH SCH ×6 (03:20→23:16)
--- NOTE | 2018-09-05 06:08 | GENERAL SURGERY PROGRESS NOTE ---
DATE: 09/05/2018 SUBJECTIVE: Patient doing well, tolerated tube being clamped, and is subsequently removed. He is tolerating a clear liquid diet. OBJECTIVE: Vital Signs: Patient is currently afebrile. His vital signs are stable. General: No acute distress. HEENT: Normocephalic, atraumatic. Pupils equal, round, reactive to light. Mucous membranes moist. Oropharynx benign. Neck: Supple. Trachea midline. Cardiovascular: Regular rate and rhythm. Lungs: Grossly clear. Abdomen: Soft. No real distention. No real tenderness. Bowel sounds auscultated. Extremities: Moves all extremities. Neurologic: The patient is resting. Skin: No signs of jaundice. Vascular: All extremities perfused. LABORATORY: None this morning as of yet. ASSESSMENT AND PLAN: An 83-year-old male with bowel obstruction. 1. Bowel obstruction. At this time, he is improving. He has got good bowel sounds. He has had return of bowel function. We will put him on a gastrointestinal soft diet. 2. Multiple medical comorbidities at this time. Defer to the hospitalist. cc: Kei Art MD
[2018-09-05 06:26] LABS: INR 2.48; PROTIME 28.6 Seconds (11.0-16.0)
[2018-09-05 06:33] LABS: AGAP 11; ALBUMIN 3.6 g/dL (3.5-5.0); ALKALINE PHOSPHATASE 74 U/L (32-122); BUN 5 mg/dL (8-22); CALCIUM 7.7 mg/dL (8.8-10.2); CHLORIDE 104 mmol/L (98-107); COSMO 275; CREATININE 0.6 mg/dL (0.7-1.2); ESTIMATED GFR > 60; GLUCOSE 98 mg/dL (70-104); GOT 17 U/L (10-34); GPT 9 U/L (10-44); POTASSIUM 3.3 mmol/L (3.5-5.1); SODIUM 139 mmol/L (136-145); TCO2 24 mmol/L (25-35); TOTAL BILIRUBIN 0.47 mg/dL (0.20-1.00); TOTAL PROTEIN 7.1 g/dL (6.3-8.3)
--- NOTE | 2018-09-05 08:13 | Diag Imaging Result Doc PS360 ---
EXAM: ABDOMEN FLAT/UPRIGHT INDICATION: sbo TECHNIQUE: 2 views COMPARISON: 09/03/2018 FINDINGS: Gaseous distention of small bowel suggesting obstruction is approximately stable. There is no evidence of large volume free abdominal gas. Otherwise, the abdomen is essentially stable. IMPRESSION: Stable distention of bowel consistent with obstruction. Electronically signed by Wili Gauthier 09/05/2018 8:11 AM
--- NOTE | 2018-09-05 08:15 | Diag Imaging Result Doc PS360 ---
EXAM: CHEST-2 VIEWS INDICATION: aspiration pna TECHNIQUE: 2 views COMPARISON: 09/03/2018 FINDINGS: Given differences in technique, the atelectasis at the lung bases is approximately stable. There is suggestion of a small right effusion that appears stable. No new consolidation is identified. Cardiac silhouette is stable. IMPRESSION: Essentially stable chest given differences in technique. Electronically signed by Wili Gauthier 09/05/2018 8:12 AM
[2018-09-05] MEDS: MAXIPIME 1 GM in NS 50 ML IV SCH ×2 (08:46→22:04)
[2018-09-05] MEDS: SODIUM CHLORIDE 0.9% INJ SCH ×2 (08:46→22:04)
[2018-09-05] MEDS: PROTONIX IV SCH ×2 (08:46→22:04)
[2018-09-05] MEDS: ZYVOX 600 MG/D5W 600 MG/300 ML IVPB IV SCH ×2 (09:34→23:03)
[2018-09-05] MEDS: NS 1,000 ML IV SCH ×2 (12:38→23:03)
[2018-09-05] MEDS ORDERED: SODIUM PHOSPHATE 40 MMOL in NS 250 ML IV ONE (14:00)
--- NOTE | 2018-09-05 15:44 | PROGRESS NOTE ---
DATE: 09/05/2018 SUBJECTIVE: Patient reports feeling fine. Not feeling nauseated. He did tolerate the diet this morning very well and also lunch. OBJECTIVE: Vital Signs: Temperature 98.2 degrees, heart rate 72, respiratory rate 20, blood pressure 156/84, O2 saturation 97% on room air. General examination: This is an 83-year-old, male, lying in bed in no acute distress. Cardiovascular exam: S1, S2 heard with a 4/6 systolic murmur in the aortic area radiating to the neck and also mechanical bowel sound in the mitral area as well. Respiratory exam: Clear bilaterally to auscultation. No work of breathing or using accessory muscles. Abdomen: Soft. A little bit distended, but better in comparing with yesterday. Bowel sounds present. No organomegaly. Extremities: No clubbing, cyanosis, or edema. Peripheral pulses present in both legs. Neurological exam: Patient alert and oriented x3. Moves 4 extremities. LABORATORY DATA: Reviewed. ASSESSMENT AND PLAN: 1. Small bowel obstruction. That condition is resolved. The patient is eating a gastrointestinal soft diet and doing fine. Plan is to observe him 24 hours. If this patient is tolerating diet and continue to have bowel movements, he can be discharged tomorrow. 2. Aspiration pneumonia. Patient is on Zyvox and cefepime day #3 for both medications. I think we can change those medications to Augmentin 875 mg oral every 12 hours to complete 10 days. 3. Mechanical mitral valve replacement. The patient has been on Lovenox and, now that the INR is on target, that medication has been stopped. We can restart warfarin at his usual doses. 4. Hyponatremia, resolved. 5. Gastrointestinal prophylaxis with Protonix. DISPOSITION: I think tomorrow if okay with General Surgery and, if this patient is tolerating diet, he can be discharged home. cc: Carrington Cyr MD
[2018-09-05] MEDS: NEUTRA-PHOS PO SCH ×2 (17:37→23:03)
[2018-09-05] MEDS: COUMADIN PO SCH (22:01)
[2018-09-06] MEDS: DUONEB (A & A) INH SCH ×6 (03:40→23:40)
[2018-09-06] MEDS: NS 1,000 ML IV SCH ×3 (05:50→16:55)
--- NOTE | 2018-09-06 06:02 | GENERAL SURGERY PROGRESS NOTE ---
DATE: 09/06/2018 SUBJECTIVE: The patient seems to be doing okay. Tolerated his diet. No complaints of abdominal pain. OBJECTIVE: Vital Signs: The patient is currently afebrile. His vital signs are stable. General Examination: No acute distress. HEENT: Normocephalic, atraumatic. Pupils equal, round, reactive to light. Mucous membranes moist. Oropharynx benign. Neck: Supple. Trachea midline. Cardiovascular: Regular rate and rhythm. Lungs: Grossly clear. Abdomen: Soft, nontender, nondistended. Extremities: Moves all extremities. Neurologic: Grossly intact. Skin: No signs of jaundice. Vascular: All extremities perfused. Laboratory: None this morning. Imaging reviewed from yesterday. ASSESSMENT AND PLAN: An 83-year-old, male with a bowel obstruction. 1. Bowel obstruction. At this time, he seems to be improving. He might need to go on some kind of bowel regimen with daily MiraLAX but from a surgical point of view, he is improving. He is tolerating his gastrointestinal soft diet. No immediate plans for surgical intervention. I think he can be discharged here in the near future. 2. Multiple medical comorbidities, currently being managed by the hospitalist. We will defer to them. cc: Kei Art MD
[2018-09-06 06:22] LABS: INR 2.64; PROTIME 30.1 Seconds (11.0-16.0)
[2018-09-06 06:48] LABS: AGAP 10; ALB/GLOB RATIO 0.8; ALBUMIN 3.1 g/dL (3.5-5.0); ALKALINE PHOSPHATASE 61 U/L (32-122); BUN 8 mg/dL (8-22); CHLORIDE 105 mmol/L (98-107); COSMO 276; CREATININE 0.7 mg/dL (0.7-1.2); ESTIMATED GFR > 60; GLUCOSE 105 mg/dL (70-104); GOT 22 U/L (10-34); GPT 15 U/L (10-44); POTASSIUM 3.2 mmol/L (3.5-5.1); SODIUM 139 mmol/L (136-145); TCO2 24 mmol/L (25-35); TOTAL BILIRUBIN 0.28 mg/dL (0.20-1.00)
[2018-09-06 06:49] LABS: CALCIUM 6.9 mg/dL (8.8-10.2)
[2018-09-06] MEDS: MAXIPIME 1 GM in NS 50 ML IV SCH ×2 (09:55→21:54)
[2018-09-06] MEDS: PROTONIX IV SCH ×2 (09:55→21:40)
[2018-09-06] MEDS: SODIUM CHLORIDE 0.9% INJ SCH (09:55)
[2018-09-06] MEDS: NEURONTIN PO SCH ×2 (09:56→21:51)
[2018-09-06] MEDS: NEUTRA-PHOS PO SCH ×4 (09:57→21:49)
[2018-09-06] MEDS: ISMO PO SCH (10:03)
[2018-09-06] MEDS: ZOLOFT PO SCH (10:04)
[2018-09-06] MEDS: ZYVOX 600 MG/D5W 600 MG/300 ML IVPB IV SCH ×2 (10:57→21:43)
[2018-09-06] MEDS: ZOCOR PO SCH (21:51)
[2018-09-06] MEDS: COUMADIN PO SCH (21:54)
[2018-09-07] MEDS: NS 1,000 ML IV SCH ×2 (02:30→14:27)
--- NOTE | 2018-09-07 04:16 | PROGRESS NOTE ---
DATE: 09/06/2018 SUBJECTIVE: The patient says he is feeling okay and actually tolerated a soft diet yesterday. Denies any current chest pains or palpitations. Has not had a bowel movement but has had some flatulence. PHYSICAL EXAMINATION: Vital Signs: Temperature 98.2, pulse 79, respiratory rate 20, BP 130/55. General: The patient is very pleasant to talk with. He is in no current respiratory distress. HEENT: Normocephalic. Neck: Supple. Cardiovascular: Regular rate with a 4/6 systolic murmur. Chest: Relatively clear. No crackles, no wheezing. Good air movement. Abdomen: Soft, slightly distended but nontender. Decreased but present bowel sounds. Extremities: Moves all extremities. No edema. Neurologic: No focal changes. He is awake, alert, oriented x3. ASSESSMENT: 1. Small bowel obstruction, has improved. 2. Aspiration pneumonia, currently on Zyvox and cefepime. 3. Mechanical mitral valve replacement. 4. Hyponatremia. PLAN: Overall, the patient has done well. We will not discharge him home today as he has not been restarted on any of his home medications. We will start him back on his GWEN inhibitor. We will hold his Norvasc as this certainly could be contributing to his constipation. The patient also states he is very weak and is too unsteady to be discharged today. We will attempt to get him out of bed, hopefully sit in the chair and get stronger. Hopefully, he can discharge home tomorrow night. He certainly may need rehab. cc: Placido Talamantes MD
--- NOTE | 2018-09-07 06:04 | GENERAL SURGERY PROGRESS NOTE ---
DATE: 09/07/2018 SUBJECTIVE: Patient seems to be doing well, tolerating his diet. OBJECTIVE: Vital Signs: Patient is currently afebrile. His vital signs are stable. General: No acute distress. HEENT: Normocephalic, atraumatic. Pupils equal, round, and reactive to light. Mucous membranes moist. Oropharynx benign. Neck: Supple. Trachea midline. Cardiovascular: Regular rate and rhythm. Lungs: Grossly clear. Abdomen: Soft, nontender, and nondistended. Extremities: Moves all extremities. Neurologic: Grossly intact. Skin: No signs of jaundice. Vascular: All extremities perfused. ASSESSMENT AND PLAN: An 83-year-old with resolving small bowel obstruction. Resolving small bowel obstruction. At this time, I think patient is probably safe to be discharged home. We will leave the exact timing to the hospitalist service, but no surgical intervention planned at this time. cc: Kei Art MD
[2018-09-07] MEDS: DUONEB (A & A) INH SCH ×6 (06:22→22:59)
[2018-09-07 06:27] LABS: INR 2.36; PROTIME 27.5 Seconds (11.0-16.0)
[2018-09-07] MEDS: ZOLOFT PO SCH (09:26)
[2018-09-07] MEDS: ISMO PO SCH (09:26)
[2018-09-07] MEDS: NEUTRA-PHOS PO SCH ×4 (09:26→22:28)
[2018-09-07] MEDS: NEURONTIN PO SCH ×2 (09:26→22:28)
[2018-09-07] MEDS: PROTONIX IV SCH ×2 (09:26→22:29)
[2018-09-07] MEDS: MAXIPIME 1 GM in NS 50 ML IV SCH ×2 (09:26→22:28)
[2018-09-07] MEDS: ZYVOX 600 MG/D5W 600 MG/300 ML IVPB IV SCH ×2 (10:21→23:15)
--- NOTE | 2018-09-07 19:44 | PROGRESS NOTE ---
DATE: 09/07/2018 SUBJECTIVE: Patient reports feeling fine. No nausea, no vomiting. Eating okay. OBJECTIVE: Vital Signs: Temperature 98.2, heart rate 60, respiratory rate 18, blood pressure 135/91, O2 sat 91% 2 L nasal cannula. General: This is a chronically ill-looking 83-year-old male lying in bed in no acute distress. Cardiovascular: S1, S2 heard with 4/6 systolic murmur in the aortic area radiating to the neck. Also, mechanical valve sound in the mitral area as well. Respiratory: Clear bilaterally to auscultation. No work of breathing or using accessory muscles. Abdomen: Soft, nontender to palpation. Bowel sounds present. No organomegaly. Extremities: No clubbing, cyanosis or edema. Peripheral pulses present in both legs. Neurologic: Patient is alert and oriented x 3. Moves 4 extremities. LABORATORY DATA: Reviewed. ASSESSMENT AND PLAN: 1. Small bowel obstruction resolved. As per general surgeon the patient can be discharged from his standpoint. 2. Aspiration pneumonia. The patient currently on Zyvox and cefepime day #5 for both medication. Whenever he is ready to go home he can be switched to Augmentin 875 mg p.o. twice daily. 3. Mechanical mitral valve replacement. Patient is on warfarin and INR should be between 2.5 and 3.5. 4. Hyponatremia, resolved. 5. GI prophylaxis, with Protonix. 6. Disposition: At this point Physical Therapy needs to evaluate this patient because I am concerned that with history of lumbar fractures I think he is a high risk of fall considering that nursing staff informed me that he was barely able to be seated in the chair with assistance of 2 people. cc: Carrington Cyr MD
[2018-09-07] MEDS: ZOCOR PO SCH (22:28)
[2018-09-07] MEDS: COUMADIN PO SCH (22:28)
[2018-09-08] MEDS: NS 1,000 ML IV SCH ×2 (01:48→16:31)
[2018-09-08] MEDS: DUONEB (A & A) INH SCH ×6 (03:28→23:10)
[2018-09-08 06:13] LABS: INR 2.67; PROTIME 30.3 Seconds (11.0-16.0)
--- NOTE | 2018-09-08 07:42 | GENERAL SURGERY PROGRESS NOTE ---
DATE: 09/08/2018 SUBJECTIVE: Patient doing about the same. There is some concern about him being deconditioned per the hospitalist's note. OBJECTIVE: Vital Signs: Patient is currently afebrile. His vital signs are stable. General: No acute distress. Resting comfortably. HEENT: Normocephalic, atraumatic. Pupils equal, round, and reactive to light. Mucous membranes moist. Oropharynx benign. Neck: Supple. Trachea midline. Cardiovascular: Regular rate and rhythm. Lungs: Grossly clear. Abdomen: Soft, nontender, and nondistended. Extremities: Moves all extremities. Neurologic: Resting. Skin: No signs of jaundice. Vascular: All extremities perfused. ASSESSMENT AND PLAN: An 83-year-old with resolving small bowel obstruction. 1. Resolving small bowel obstruction. At this time, seems to be doing well. Nothing new to add. 2. Deconditioning at this time. Physical Therapy is going to work with the patient. 3. Disposition at this time. From a surgical point of view, he can be discharged once okay with the hospitalist service. cc: Kei Art MD
[2018-09-08] MEDS: MAXIPIME 1 GM in NS 50 ML IV SCH ×2 (08:28→22:01)
[2018-09-08] MEDS: PROTONIX IV SCH ×2 (08:30→22:02)
[2018-09-08] MEDS: ZOLOFT PO SCH (08:30)
[2018-09-08] MEDS: ISMO PO SCH (08:30)
[2018-09-08] MEDS: NEURONTIN PO SCH ×2 (08:30→22:01)
[2018-09-08] MEDS: NEUTRA-PHOS PO SCH ×4 (08:30→22:02)
[2018-09-08] MEDS: ZYVOX 600 MG/D5W 600 MG/300 ML IVPB IV SCH ×2 (09:27→23:10)
[2018-09-08] MEDS: ZOCOR PO SCH (22:01)
[2018-09-08] MEDS: COUMADIN PO SCH (22:01)
[2018-09-09] MEDS: DUONEB (A & A) INH SCH ×3 (03:10→10:54)
[2018-09-09] MEDS: NS 1,000 ML IV SCH ×2 (05:58→07:09)
--- NOTE | 2018-09-09 06:12 | PROGRESS NOTE ---
DATE: 09/08/2018 SUBJECTIVE: Patient reports feeling fine. Eating okay. Having bowel movements , OBJECTIVE: Vital Signs: Temperature 97.4, heart rate 73, respiratory rate 16, blood pressure 132/76. O2 saturation 97% on 2 L nasal cannula. General: This is an 83-year- old male lying in bed in no acute distress. Cardiovascular: S1, S2 heard. 4/6 systolic murmur in the aortic area radiating to the neck and also mechanical valve filmed in the mitral area as well. Respiratory: Clear bilaterally to auscultation. No work of breathing or using accessory muscles. Abdomen is soft, nontender to palpation. Bowel sounds present. No organomegaly. Extremities: No clubbing, cyanosis, or edema. Peripheral pulses present in both legs. Neurological: Patient alert and oriented x3. Moves 4 extremities. LABORATORY DATA: Reviewed. ASSESSMENT AND PLAN: 1. Small bowel obstruction resolved. From surgical standpoint, he can be discharged. 2. Aspiration pneumonia. Patient is on Zyvox and cefepime day number 6 for both medications. We will continue with the same management until he is ready to go home or rehab that we can change to different medication. 3. Hyponatremia, resolved. DISPOSITION: At this point, the patient is medically stable and good to go, but he is very weak, so physical therapy is going to evaluate. Most likely he needs to go to rehab. The patient agreed with the plan if needed. cc: Carrington Cyr MD MTDD
[2018-09-09 07:05] LABS: INR 2.35; PROTIME 27.5 Seconds (11.0-16.0)
[2018-09-09] MEDS: MAXIPIME 1 GM in NS 50 ML IV SCH (09:04)
[2018-09-09] MEDS: NEUTRA-PHOS PO SCH ×2 (09:05→13:11)
[2018-09-09] MEDS: ISMO PO SCH (09:05)
[2018-09-09] MEDS: PROTONIX IV SCH (09:05)
[2018-09-09] MEDS: ZOLOFT PO SCH (09:06)
[2018-09-09] MEDS: NEURONTIN PO SCH (09:06)
[2018-09-09] MEDS: ZYVOX 600 MG/D5W 600 MG/300 ML IVPB IV SCH (09:41)
[2018-09-09 11:32] VITALS: BP 113/79
--- NOTE | 2018-09-09 13:45 | GENERAL SURGERY PROGRESS NOTE ---
DATE: 09/09/2018 TIME: 1000 hours. Mr. Abbasi has resolved bowel obstruction. He is eating solid food now. His abdomen is soft and nontender. He is progressing well and will not require any operative intervention. He could be discharged from a surgical point of view, when indicated. cc: Hill Lundy MD
--- NOTE | 2018-09-10 18:33 | DISCHARGE SUMMARY ---
ADMISSION DATE: 09/01/2018 DISCHARGE DATE: 09/09/2018 DISCHARGE DIAGNOSES: 1. Small bowel obstruction resolved. 2. Right lower lobe pneumonia under treatment. 3. Hypertension. 4. Mitral mechanical bowel. 5. Hyperlipidemia. CONSULTATIONS: 1. Dr. Art from General Surgery. 2. Dr. Pineda Bradford from Cardiology. HOSPITAL COURSE: This is a patient who was brought to the emergency department complaining of 3- day history of constipation, abdominal distention and diffuse abdominal pain. In the ER, he was found to have a small bowel obstruction. He was bradycardic so he was admitted to the hospital. NG tube has been placed. He was followed by Dr. Art. He was progressively getting better to the point that he started tolerating clear liquid diet. We finally decided to increase it to a normal diet. The patient was doing good from that standpoint. For pneumonia, he was on broad-spectrum antibiotics with Zyvox and cefepime. At the time of discharge, the patient can be switched to oral antibiotics. For mitral valve mechanical bowel, we initially placed this patient on Lovenox because he was not able to take anything by mouth. Then when the INR gets therapeutic in the range to 2.5 to 3.5, we start warfarin again. There have been no issues, and he is supposed to continue with warfarin at home. We have continued with medications for hyperlipidemia. Our concern and that is the reason why he stays in the hospital because he may need to go to rehab facility, but when he starts working with them we do have seen that this patient was doing fine so our plan is to send him home. We will have his primary care doctor to call home health agency to restart those services. The patient is good to go today. DISCHARGE PHYSICAL EXAMINATION: Vital Signs: Temperature 98.1 degrees, heart rate 72, respiratory rate 22, blood pressure 113/79 and O2 saturation 95% on room air. General: This is an 83-year-old male lying in bed in no acute distress HEENT: Head is normocephalic and atraumatic. Neck: No JVD noted. No carotid bruits. No lymphadenopathy. No thyromegaly. Cardiovascular: S1-S2 heard. No murmurs, gallops, or rubs. Regular rate and rhythm. Respiratory: Exam is clear bilaterally to auscultation. No work of breathing or using accessory muscles. Abdomen: Soft, nontender to palpation. Bowel sounds present. No organomegaly. Extremities: No clubbing, cyanosis, or edema. Peripheral pulses present in both legs. Neurological: Patient is alert and oriented x3. Moves 4 extremities. DISCHARGE DISPOSITION: Home with home health. FOLLOW UP: Primary care physician in a week. DISCHARGE MEDICATIONS: 1. Augmentin 1 tab 875 1 tablet p.o. b.i.d. for 7 days. 2. Zoloft 100 mg p.o. in the morning. 3. Simvastatin 20 mg p.o. at bedtime. 4. Ambien 10 mg p.o. at bedtime. 5. Warfarin 2.5 mg 1 tablet p.o. at bedtime. 6. Mesalamine 800 mg 1 tablet p.o. b.i.d. 7. Isosorbide 10 mg 1 tablet p.o. daily. 8. Gabapentin 300 mg 1 tablet p.o. b.i.d. 9. Benazepril 20 mg 1 tablet p.o. daily. 10. Metoprolol 25 mg 1 tablet p.o. daily. TIME SPENT: Time discharging this patient 35 minutes. cc: Carrington Cyr MD
== END 2018-09-09 14:29 | disposition home health service (06) | DRG 388 ==
LOC: ED 19:09 → SUATTDRO 23:04 → 3S 23:04 → EDIPHOLD 23:42 → 3S 09-02 01:34 → 4N 09-04 22:16
PROVIDERS: ATTEND Internal Medicine
CPT/HCPCS: 36415; 71020; 71046; 74000; 74018; 74019; 74020; 74022; 74177; 80048; 80053; 81001; 82550; 82948; 83735; 84100; 84145; 84484; 85025; 85610; 85730; 87040; 87088; 93005; 94640; 94761; 94799; 96365; 96366; 96375; 97116; 97162; 97165; 97530; 99285; A9270; C9113; J0131; J0692; J1170; J1650; J2020; J2405; J2543; J7030; J7050; Q9967; S0164; XXXXX